=== PATIENT | male | born 1975 ===

== ENCOUNTER 2016-06-30 21:03 | Emergency (ER) | payer SELFPAY ==
[2016-07-01 03:07] VITALS: BP 126/87; PULSE 81; RESP 18; TEMP 98.9; O2SAT 99
--- NOTE | 2016-07-01 05:37 | C.PDOC ---
History Of Present Illness Pt presents to ER with c/o of fever, dry cough, body aches, malaise x 1 day. No OTC meds taken, no sick contact or recent travel history. Pt denies CP, SOB, vomiting or diarrhea Time Seen by Provider: 06/30/16 21:24 Chief Complaint (Nursing): Fever History Per: Patient History/Exam Limitations: no limitations Onset/Duration Of Symptoms: Days (1) Current Symptoms Are (Timing): Still Present Location Of Pain: None Associated Symptoms: Fever, Chills, Myalgias. denies: Sore Throat, Cough, Neck Pain, Nasal Congestion, Vomiting, Diarrhea Ear Symptoms: Bilateral: None Recent travel outside of the [place]: No Past Medical History Vital Signs: Last Vital Signs Temp 98.9 F 06/30/16 22:10 Pulse 81 06/30/16 22:10 Resp 18 06/30/16 22:10 BP 126/87 06/30/16 22:10 Pulse Ox 99 06/30/16 22:10 - Medical History PMH: No Chronic Diseases Family History: States: Unknown Family Hx - Social History Hx Alcohol Use: No Hx Substance Use: No - Immunization History Hx Tetanus Toxoid Vaccination: Yes Hx Influenza Vaccination: No Hx Pneumococcal Vaccination: No Review Of Systems Constitutional: Positive for: Fever, Chills, Malaise Cardiovascular: Negative for: Chest Pain, Palpitations Respiratory: Negative for: Cough, Shortness of Breath Physical Exam - Physical Exam Appears: Well, Non-toxic, No Acute Distress Skin: Normal Color Head: Atraumatic Eye(s): bilateral: Normal Inspection, PERRL, EOMI Ear(s): Bilateral: Normal Nose: Normal Oral Mucosa: Moist Neck: Normal, Midline Cervical Tenderness Chest: Symmetrical, No Tenderness Cardiovascular: Rhythm Regular Respiratory: Normal Breath Sounds, No Rhonchi, No Wheezing Neurological/Psych: Oriented x3 Gait: Steady ED Course And Treatment O2 Sat by Pulse Oximetry: 99 Disposition Counseled Patient/Family Regarding: Diagnosis, Need For Followup, Rx Given - Disposition Disposition: HOME/ ROUTINE Disposition Time: 10:35 Condition: GOOD - Clinical Impression Clinical Impression: Viral illness
== END 2016-06-30 22:10 | disposition home or self-care (01) ==
LOC: C.ER 21:03
DX: B34.9 Viral infection, unspecified (principal)